=== PATIENT | female | born 1955 | race Caucasian/White ===

== ENCOUNTER 2019-12-15 02:39 | Inpatient (IN) | payer MEDICARE, OTHER ==
[2019-12-15] MEDS ORDERED: Potassium Chloride 20 MEQ in Premix Bag 1 BAG IVPB SCH (03:15)
[2019-12-15] MEDS ORDERED: Magnesium 2 GM/50 ML BAG (IN WATER) ONE (03:20)
[2019-12-15] MEDS ORDERED: metroNIDAZOLE 500 MG/100 ML BAG ONE ×2 (03:50→12:57)
[2019-12-15] MEDS ORDERED: Ondansetron PF 4 MG/2 ML Vial ONE ×2 (04:02→09:48)
[2019-12-15] MEDS ORDERED: Acetaminophen 500 MG TAB ONE (04:13)
[2019-12-15 05:25] VITALS: BMI 25.7
[2019-12-15] MEDS ORDERED: Ondansetron ODT 4 MG TAB SL PRN (05:26)
[2019-12-15] MEDS ORDERED: Ondansetron PF 4 MG/2 ML Vial IVP PRN (05:26)
[2019-12-15] MEDS ORDERED: Lactated Ringer's 1,000 ML IV SCH ×2 (05:30→12:30)
[2019-12-15 07:09] LABS: Hemoglobin 12.3 g/dL (12.0-16.0); Mean Corpuscular HGB CONC 33.3 g/dL (32.0-36.0); Mean Corpuscular Volume 93.2 fL (78.0-98.0); Mean Platelet Volume 7.6 fL (7.4-10.4); Platelet Count 122 thou/uL (130-400); RBC Distribution Width 12.1 % (11.5-14.5); Red Blood Cell (RBC) Count 3.96 mill/uL (4.20-5.40)
[2019-12-15 07:16] LABS: INR-International Normal Ratio 1.3; Prothrombin Time 16.3 SEC (12.0-14.7)
[2019-12-15 07:24] LABS: Anion Gap 16 mmol/L (10-20); BUN (Urea Nitrogen) 13 mg/dL (9.8-20.1); Calc. Creatinine Clearance 68 mL/min (70-130); Calcium 8.2 mg/dL (7.8-10.44); Carbon Dioxide 21 mmol/L (23-31); Chloride 103 mmol/L (98-107); Estimated GFR-MDRD 67; Glucose 144 mg/dL (80-115); Potassium 3.1 mmol/L (3.5-5.1); Sodium 137 mmol/L (136-145)
[2019-12-15 07:44] LABS: Band 36 % (5-11); Lymphocytes 6 % (21-51); MDiff Complete? YES; Metamyelocyte 1 % (0-0); Neutrophil 57 % (42-75); Platelet Morphology Comment Appears Decreased; Polychromasia SLIGHT = 2-3 cells (100X) (0-2/hpf); Reflex for Review?? NO; Vacuoles MODERATE
--- NOTE | 2019-12-15 08:07 | RAD ---
AP VIEW CHEST: Date: 12/15/2019 INDICATION: Preop evaluation. COMPARISON: None. FINDINGS: There is mild cardiomegaly. Pulmonary vasculature is within normal limits. There are vascular calcifi cations involving the aortic arch. There are patchy linear and air space opacities within the left lo wer lobe with a small left pleural effusion. Right lung is clear. No acute osseous abnormality is keily dent. IMPRESSION: Patchy air space opacity of the left lower lobe and a small left pleural effusion. Recommend correlat ion for any symptoms and signs of pneumonia. A 2 view chest radiograph may be helpful for improved ch aracterization. Radiographic follow-up to resolution is recommended. POS: [facility]
[2019-12-15] MEDS: Meropenem 2 GM, Admixture Fee 1 EACH in Sodium Chloride 0.9% 100 ML IVPB SCH ×2 (09:30→19:50)
[2019-12-15] MEDS ORDERED: Zolpidem Tartrate 5 MG TAB PO PRN (09:35)
[2019-12-15] MEDS ORDERED: Ondansetron ODT 4 MG TAB PO PRN (09:35)
[2019-12-15] MEDS ORDERED: HYDROcodone/Acetaminophen 7.5/325 mg Tablet PO PRN (09:35)
[2019-12-15] MEDS ORDERED: Acetaminophen 325 MG TAB PO PRN (09:35)
[2019-12-15] MEDS ORDERED: PHENYLEPHRINE-NS 100 MCG/ML 10 ML SYRINGE ONE (09:48)
[2019-12-15] MEDS ORDERED: diphenhydrAMINE 50 MG/ML VIAL ONE (09:48)
[2019-12-15] MEDS ORDERED: Dexamethasone 20 MG/5 ML VIAL ONE (09:48)
[2019-12-15] MEDS ORDERED: PROPOFOL 200 MG/20 ML VIAL ONE (09:48)
[2019-12-15] MEDS ORDERED: ePHEDrine/0.9% NaCl/PF SYRINGE 50 mg/10 ml ONE (09:48)
[2019-12-15 10:27] LABS: Bilirubin Negative (Negative); Blood, Urine 2+ (Negative); Clarity Clear (Clear); Glucose, Urine (Dipstick) Normal (Negative); Leukocyte 250 Leu/uL (Negative); Nitrite Negative (Negative); Protein, Urine (Dipstick) 10 mg/dL (Neg-Trace); Squamous Epithelial 0-3 HPF (0-3); Urobilinogen Normal mg/dL (Less than 2); WBC/HPF 21-50 HPF (0-3)
--- NOTE | 2019-12-15 10:28 | HP ---
PRIMARY CARE PROVIDER: Dr. Alton Alfaro. HISTORY OF PRESENT ILLNESS: The patient referred to the [facility] Service through [facility], with a history of back pain for 3 days, that was generalized, and yesterday, localized to the right side. She was seen in the emergency room, found to have an obstructing 5 mm stone in the right ureter. She was transferred here. She notes no fever at home, but was noted to be febrile in the emergency room. She has had chills, nausea, and vomiting. Her pain resolved last night, and she is doing well at the present time. PAST MEDICAL HISTORY: Hypertension. MEDICATIONS: 1. Aspirin 81 mg a day. 2. Coreg 12.5 mg twice a day. 3. Hydrochlorothiazide 25 mg a day. 4. Celebrex 200 mg twice a day. 5. Amlodipine 2.5 mg a day. 6. Losartan 100 mg a day. ALLERGIES: NO KNOWN DRUG ALLERGIES. PAST SURGICAL HISTORY: 1. Tonsillectomy in the distant past. 2. Cholecystectomy with an incidental appendectomy. 3. Tubal ligation. 4. Two inguinal hernias. FAMILY HISTORY: Mother of uterine cancer. Father is , multiple CVAs. She has a sister with cervical cancer. 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 No tobacco. She drinks wine 2 to 4 days a week. REVIEW OF SYSTEMS: GENERAL: She has had no headaches, dizziness, or fainting except for a mild headache with present illness. EYES: No double vision, blurred vision, or flashing lights. EARS, NOSE, AND THROAT: No ear pain or drainage. No nasal bleeding. No trouble swallowing. CARDIAC: No chest pain, orthopnea, or paroxysmal nocturnal dyspnea. RESPIRATIONS: No cough, wheezing, or asthma. GASTROINTESTINAL: No nausea, vomiting except for present illness, abdominal pain, diarrhea, or constipation. GENITOURINARY: No hematuria. No difficulty with urination. MUSCULOSKELETAL: No pain or swelling in her arms or legs. NEUROLOGICAL: No strokes, seizures, or focal weakness. PSYCHIATRIC: No anxiety or depression. SKIN: No bruising, bleeding, or rash. HEME/LYMPH: No tender or swollen lymph nodes in her inguinal, axillary, or cervical area. PHYSICAL EXAMINATION: GENERAL: The patient is alert, oriented, cooperative lady, in no distress at the present time. VITAL SIGNS: Initial temperature 100.4, now 98.4; initial pulse 102, followup 103; blood pressure 121/72; respirations 18; blood pressure 85/50 in the emergency room, she was noted to have a temperature as high as 100.8, last blood pressure in emergency room was 112/64. HEAD, EYES, EARS, NOSE, AND THROAT: Pupils are equal, round, and reactive to light. Extraocular movements are intact. Sclerae are white. Tympanic membranes are clear. Nose is clear. Oral mucous membranes are wet. Dental hygiene is good. NECK: Supple without jugular venous distention, adenopathy, or thyromegaly. CHEST: Clear to auscultation and percussion. HEART: Regular rate and rhythm. First and second heart sounds are clear. There are no murmurs, no gallops. ABDOMEN: Soft. Bowel sounds are normal. There is no hepatosplenomegaly. No mass. No rebound. No bruits. EXTREMITIES: No cyanosis, clubbing, or edema. PULSES: Carotid, radial, femoral, and popliteal pulses intact. SKIN: Warm and dry without bruises or rash. HEME/LYMPH: No tender or swollen lymph nodes in the axilla, inguinal, or cervical area. NEUROLOGICAL: Cranial nerves 2 through 12 intact. Moves all extremities. DIAGNOSTIC DATA: Chest x-ray reviewed by me. No cardiomegaly, CHF, or infiltrate. EKG personally reviewed, normal sinus rhythm, grossly normal EKG. No acute ST-T abnormality. LABORATORY DATA: Laboratory done at our site; white count 8.0 with 36 bands, hemoglobin 12.3, platelet count 122,000. Basic metabolic profile; sodium 137, potassium 3.1, CO2 is 21, BUN 13, creatinine 0.85, blood sugar 144. ADMITTING DIAGNOSES: 1. Renal colic with obstructing 5 mm stone on the right. 2. Sepsis syndrome with fever, bandemia. 3. Hypertension. 4. Hypokalemia. PLAN: IV fluids. Urine culture has been obtained. She has been started on meropenem. A cystoscopy with stent is planned by Dr. Robert later today. With the evidence of sepsis, bandemia, and fever, the patient will need at least 2 overnight stays. Job ID: [id number]
[2019-12-15 10:39] LABS: Bacteria/HPF 1+ HPF (None Seen)
[2019-12-15] MEDS ORDERED: Sodium Chloride 0.9% 1,000 ML IV SCH ×2 (10:45→12:15)
[2019-12-15] MEDS ORDERED: metroNIDAZOLE 500 MG in Premix Bag 1 BAG IVPB SCH (12:00)
[2019-12-15 12:41] LABS: Hemoglobin 11.3 g/dL (12.0-16.0); Mean Corpuscular HGB CONC 32.7 g/dL (32.0-36.0); Mean Corpuscular Hemoglobin 30.4 pg (27.0-31.0); Mean Corpuscular Volume 92.8 fL (78.0-98.0); Mean Platelet Volume 7.7 fL (7.4-10.4); Platelet Count 119 thou/uL (130-400); RBC Distribution Width 12.2 % (11.5-14.5); Red Blood Cell (RBC) Count 3.72 mill/uL (4.20-5.40); White Blood Cell (WBC) Count 17.9 thou/uL (4.8-10.8)
--- NOTE | 2019-12-15 12:46 | PDOC.EVN ---
Event Note - Event Note Event Note: sys mid 70 supine, mid 80s standing. no dizziness , AMS. OK to go to preop
[2019-12-15 13:13] LABS: Band 44 % (5-11); Lymphocytes 4 % (21-51); MDiff Complete? YES; Metamyelocyte 4 % (0-0); Monocytes 4 % (0-10); Neutrophil 43 % (42-75); Platelet Morphology Comment Appears Decreased; Polychromasia SLIGHT = 2-3 cells (100X) (0-2/hpf); Vacuoles SLIGHT
--- NOTE | 2019-12-15 13:39 | CON ---
DATE OF CONSULTATION: 12/15/2019 REASON FOR CONSULTATION: Right ureteral calculi. HISTORY OF PRESENT ILLNESS: Ms. Santana is a pleasant 64-year-old female with history of hypertension and hyperlipidemia with no prior history of kidney stone , presented to the emergency room with few days of right flank pain with worsening. She denies history of fever, questionable chills. CT in the emergency room demonstrated right distal ureteral calculi, 5 mm, just proximal to the UVJ and questionable diverticulitis. She is hemodynamically stable, however, advised regarding observation/admit as she presents with leukocytosis with nausea. The patient was transferred from [facility] ER, currently resting comfortably. She denies prior history of UTI, pyelonephritis, prior history of kidney stones, nor incontinence. PAST MEDICAL HISTORY: Includes arthritis, hyperlipidemia, and hypertension. PAST SURGICAL HISTORY: Appendectomy, cholecystectomy, hernia repair, and tubal ligation. FAMILY HISTORY: Positive for hypertension, arthritis, CVA, diabetes, cervical cancer, heart failure, and uterine cancer. ALLERGIES: NO KNOWN DRUG ALLERGIES. SOCIAL HISTORY: Negative. 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 REVIEW OF SYSTEMS: Ten-point review of systems, as above. Otherwise, noncontributory. PHYSICAL EXAMINATION: VITAL SIGNS: Her blood pressure is stable. She had a T-max of 101.8. Currently, she is 98. No significant tachycardia or hypotension. GENERAL: The patient is resting comfortably. HEENT: Unremarkable. HEART: Regular rate. LUNGS: Clear. ABDOMEN: Soft, nontender, and nondistended. : No gross CVA tenderness on physical exam currently. NEUROLOGIC: No gross focal deficits. PSYCHIATRIC: Appears to be appropriate and intact. EXTREMITIES: No cyanosis, clubbing, or edema of the lower extremities. Pertinent PERTINENT LABORATORY DATA: Pertinent labs, which I reviewed in Epic records at [facility] and [facility] Room: Creatinine 0.6. White count 15, hemoglobin is 13, platelet 251. UA from [facility] demonstrates 10 to 19 rbc's, 3 to 9 wbc's, rare epithelials, few bacteria, negative leukocytes, negative nitrites. CT of the abdomen and pelvis with contrast at [facility]: 5 mm right distal ureteral calculi just proximal to the UVJ with moderate right hydroureteronephrosis with delayed nephrogram; bilateral renal cysts, too small to characterize; colonic sigmoid mural thickening with inflammation, cannot rule out diverticulitis. IMPRESSION AND PLAN: 1. Ms. Santana is a pleasant 64-year-old female with history of hypertension and hyperlipidemia, who presents with right lower quadrant abdominal pain, fever, and leukocytosis with CT demonstrating 5 mm distal ureteral calculi with hydronephrosis. The patient is currently n.p.o. She is provided Levaquin and Flagyl by the ER. Meropenem empirically has been started. She is n.p.o. Recommend cysto and right stent. The patient and family were consulted that ureteral stent is advised given her clinical presentation with fever and leukocytosis and elective treatment of her ureteral calculi when culture negative discussed. Risks, complications, and indications for the surgery reviewed, and she desires to proceed. 2. Questionable diverticulitis. Recommend Medical/GI workup. Job ID: [id number] [facility] HOSPITALStephanie
[2019-12-15] MEDS ORDERED: Iothalamate Meglumine 60% 50 ML VIAL FS ONE (15:34)
[2019-12-15] MEDS ORDERED: Midazolam HCl 2 mg/2 ml Vial ONE (15:38)
[2019-12-15] MEDS ORDERED: Fentanyl 100 MCG/2 ML VIAL ONE ×2 (15:38→18:01)
--- NOTE | 2019-12-15 16:21 | RAD ---
EXAM: Retrograde IVP HISTORY: Stent placement for hydronephrosis COMPARISON: None FINDINGS/IMPRESSION: Limited intraoperative fluoroscopic views of the retrograde IVP were submitted f or interpretation. There is moderate right hydronephrosis. Additionally, a right-sided double-J ureteral stent is placed and appears in good position. No obvious filling defects are seen.
[2019-12-15] MEDS ORDERED: Mag-Al 1200 mg/1200 mg/30 ML UDCUP PO PRN (16:26)
[2019-12-15] MEDS ORDERED: Ondansetron HCl/PF 4 MG/2 ML Vial IVP PRN (16:33)
[2019-12-15] MEDS ORDERED: Acetaminophen 325 MG TAB ONE (16:57)
[2019-12-15 18:05] LABS: Anion Gap 16 mmol/L (10-20); BUN (Urea Nitrogen) 17 mg/dL (9.8-20.1); Calc. Creatinine Clearance 44 mL/min (70-130); Calcium 7.9 mg/dL (7.8-10.44); Carbon Dioxide 20 mmol/L (23-31); Chloride 107 mmol/L (98-107); Estimated GFR-MDRD 41; Glucose 140 mg/dL (80-115); Potassium 3.1 mmol/L (3.5-5.1); Sodium 140 mmol/L (136-145)
--- NOTE | 2019-12-15 18:29 | OP ---
DATE OF PROCEDURE: 12/15/2019 PREOPERATIVE DIAGNOSES: 1. 5 mm right distal ureteral calculi just proximal to ureterovesical junction. 2. Leukocytosis. 3. Possible concomitant diverticulitis. POSTOPERATIVE DIAGNOSES: 1. 5 mm right distal ureteral calculi just proximal to ureterovesical junction. 2. Leukocytosis. 3. Possible concomitant diverticulitis. PROCEDURES PERFORMED: Cysto, right 6 x 24 double-J ureteral stent. ANESTHESIA: LMA. COMPLICATIONS: None apparent. DISPOSITION: Recovery room in stable condition. INDICATIONS FOR PROCEDURE AND HISTORY: Ms. Santana presented to the emergency room due to a history of right flank pain, found to have 5 mm distal ureteral calculi and possible diverticulitis. She presents for cysto and stent placement. She has been provided broad-spectrum antibiotic therapy with Levaquin, meropenem, and Flagyl. Pain is controlled; however, she recently developed hypotension. She otherwise is comfortable, heart rate normal. Presents for cysto and stent. The patient and her were fully informed that she will require at a later date staged ureteroscopy and laser lithotripsy. Risks and complications of the procedure were reviewed including bleeding, pain, infection, progressive sepsis, morbidity, mortality, and injury to adjacent organs such as ureter, bladder, or kidney were reviewed. DESCRIPTION OF PROCEDURE: After an informed consent was signed, the patient was taken to the operating room and placed in the dorsal lithotomy position with the genital area prepped and draped in the usual surgical sterile fashion. A 21- Burundian cystoscope was utilized for cystoscopy. Fluoroscopy did demonstrate that she has a persistent contrast in the right ureter and kidney. A 0.035 Sensor wire was utilized to intubate the right UO. There was some resistance passing a 21- Burundian cystoscope; however, I was able to pass the scope without trauma. We passed a 0.035 Sensor wire into the right upper pole. A 6 x 24 double-J ureteral stent was passed. There was resistance passing the stent at the level of the stone; however, we did place the stent uneventfully in good position. No significant pyonephrosis from the right kidney was appreciated. A 16-Burundian Keller catheter was placed. She would be monitored in intensive care unit with broad-spectrum antibiotics and fluid resuscitation and pressors if needed. Job ID: [id number] [facility]
[2019-12-15] MEDS: Sodium Chloride 0.9% 1,000 ML IV SCH (20:49)
[2019-12-15] MEDS: Docusate 100 MG CAP PO SCH (20:50)
[2019-12-15] MEDS ORDERED: Carvedilol 6.25 MG TAB PO SCH (21:00)
[2019-12-16] MEDS: Meropenem 2 GM, Admixture Fee 1 EACH in Sodium Chloride 0.9% 100 ML IVPB SCH ×3 (00:44→15:47)
[2019-12-16] MEDS: Sodium Chloride 0.9% 1,000 ML IV SCH ×4 (00:44→14:53)
[2019-12-16 04:16] LABS: Anion Gap 12 mmol/L (10-20); BUN (Urea Nitrogen) 18 mg/dL (9.8-20.1); Calc. Creatinine Clearance 63 mL/min (70-130); Calcium 7.7 mg/dL (7.8-10.44); Carbon Dioxide 20 mmol/L (23-31); Chloride 110 mmol/L (98-107); Estimated GFR-MDRD 62; Glucose 135 mg/dL (80-115); Potassium 3.4 mmol/L (3.5-5.1); Sodium 139 mmol/L (136-145)
[2019-12-16 04:17] LABS: Band 10 % (5-11); Hemoglobin 11.3 g/dL (12.0-16.0); Hypochromia SLIGHT = 6-15 cells (100X) (0-5/hpf); Lymphocytes 8 % (21-51); MDiff Complete? YES; Mean Corpuscular HGB CONC 32.6 g/dL (32.0-36.0); Mean Corpuscular Hemoglobin 30.6 pg (27.0-31.0); Mean Corpuscular Volume 93.8 fL (78.0-98.0); Mean Platelet Volume 8.4 fL (7.4-10.4); Monocytes 14 % (0-10); Neutrophil 68 % (42-75); Platelet Count 125 thou/uL (130-400); Platelet Morphology Comment Appears Adequate; RBC Distribution Width 12.3 % (11.5-14.5); Red Blood Cell (RBC) Count 3.71 mill/uL (4.20-5.40)
--- NOTE | 2019-12-16 07:11 | PDOC.HOSPP ---
- Subjective Encounter Date: 12/16/19 Encounter Time: 07:09 Subjective: alert, no pain or fever - Objective Vital Signs & Weight: Vital Signs (12 hours) Temp Pulse Ox 12/16/19 05:00 98.9 F 12/16/19 01:00 98.3 F 12/15/19 21:00 98.9 F 12/15/19 20:00 93 L Weight Weight 145 lb 9.6 oz Most Recent Monitor Data Heart Rate from ECG 84 NIBP 106/71 NIBP BP-Mean 82 Respiration from ECG 21 SpO2 97 I&O: 12/15/19 12/16/19 12/17/19 06:59 06:59 06:59 Intake Total 0 4405 Output Total 1515 Balance 0 2890 Result Diagrams: 12/16/19 03:26 12/16/19 03:26 Hospitalist ROS - Medication Medications: Active Medications Generic Name Dose Route Start Last Admin Trade Name Freq PRN Reason Stop Dose Admin Docusate Sodium 100 mg 12/15/19 21:00 12/15/19 20:50 Colace PO 100 mg BID VIC Administration Meropenem 2 gm/ Miscellaneous 100 mls @ 200 mls/hr 12/15/19 08:00 12/16/19 00 :44 Medication 1 each/ Sodium IVPB 100 mls Chloride 0800,1600,2359 VIC Administration - Exam General Appearance: awake alert Neck: no JVD Heart: RRR, no murmur Respiratory: CTAB Gastrointestinal: soft, normal bowel sounds Extremities: no edema Hosp A/P (1) Renal colic on right side Code(s): N23 - UNSPECIFIED RENAL COLIC Status: Acute (2) Nephrolithiasis Status: Acute (3) Sepsis Code(s): A41.9 - SEPSIS, UNSPECIFIED ORGANISM Status: Acute Qualifiers: Sepsis acute organ dysfunction status: without acute organ dysfunction (4) Hypotension Status: Resolved Qualifiers: Hypotension type: other hypotension type Qualified Code(s): I95.89 - Other hypotension (5) HTN (hypertension) Code(s): I10 - ESSENTIAL (PRIMARY) HYPERTENSION Status: Chronic Qualifiers: Hypertension type: essential hypertension Qualified Code(s): I10 - Essential (primary) hypertension - Plan urine C&S pending post ureteral stent cont meropenem hold antihypertensives as BP normal curre dicussed with move to medical unitently
[2019-12-16] MEDS ORDERED: Potassium Chloride 20 MEQ TAB PO SCH (07:15)
--- NOTE | 2019-12-16 08:09 | PRG ---
DATE OF SERVICE: 12/16/2019 SUBJECTIVE: The patient is feeling and looking much better. Denies flank pain, chills, fever. OBJECTIVE: VITAL SIGNS: T-max of 100.4, T-current is 98.9, pulse 84, and blood pressure 106/71. Not on pressors. I's and O's 4405 in, 1517 out. She is positive 2.8 L. ABDOMEN: Soft, nontender, nondistended. Keller catheter demonstrating concentrated yellow urine with some sediment. PERTINENT LABORATORY DATA: White count 30,000 today, although there is significant leukocytosis, there is improvement of her bandemia from 44 to 10. Creatinine is 0.9. IMPRESSION AND PLAN: 1. Ms. Lucas is a 64-year-old female with right distal ureteral stone postop day #1 cysto, right stent. 2. Sepsis. 3. Possible diverticulitis. 4. Continue meropenem. patient's blood pressure and vital signs are stable and clinically much improved. will transition to a regular floor per Hospitalist continue indwelling Keller catheter for now. The patient will need to be remain in-house until culture has been finalized. Await cultures. Continue meropenem for now. Job ID: [id number] [facility]
[2019-12-16] MEDS: Aspirin 81 mg Enteric Coated Tablet PO SCH (08:42)
[2019-12-16] MEDS: Docusate 100 MG CAP PO SCH ×2 (08:42→20:55)
[2019-12-16] MEDS ORDERED: Amlodipine 5 MG TAB PO SCH (09:00)
[2019-12-16] MEDS ORDERED: Losartan 25 MG TAB PO SCH (09:00)
[2019-12-16 17:18] LABS: Anion Gap 14 mmol/L (10-20); BUN (Urea Nitrogen) 20 mg/dL (9.8-20.1); Calc. Creatinine Clearance 70 mL/min (70-130); Calcium 7.8 mg/dL (7.8-10.44); Carbon Dioxide 21 mmol/L (23-31); Chloride 111 mmol/L (98-107); Estimated GFR-MDRD 69; Glucose 92 mg/dL (80-115); Potassium 3.8 mmol/L (3.5-5.1); Sodium 142 mmol/L (136-145)
[2019-12-17] MEDS: Meropenem 2 GM, Admixture Fee 1 EACH in Sodium Chloride 0.9% 100 ML IVPB SCH ×4 (00:20→23:50)
[2019-12-17] MEDS: Sodium Chloride 0.9% 1,000 ML IV SCH ×2 (04:37→23:49)
[2019-12-17 06:18] LABS: Band 13 % (5-11); Hemoglobin 11.2 g/dL (12.0-16.0); Lymphocytes 5 % (21-51); MDiff Complete? YES; Mean Corpuscular HGB CONC 31.9 g/dL (32.0-36.0); Mean Corpuscular Hemoglobin 30.4 pg (27.0-31.0); Mean Corpuscular Volume 95.2 fL (78.0-98.0); Mean Platelet Volume 8.9 fL (7.4-10.4); Monocytes 3 % (0-10); Neutrophil 79 % (42-75); Platelet Count 130 thou/uL (130-400); RBC Distribution Width 12.5 % (11.5-14.5); Red Blood Cell (RBC) Count 3.69 mill/uL (4.20-5.40)
[2019-12-17] MEDS ORDERED: Phenazopyridine HCl 97.5 MG TABLET PO PRN (07:38)
--- NOTE | 2019-12-17 08:04 | PRG ---
DATE OF SERVICE: 12/17/2019 SUBJECTIVE: The patient is feeling well. She denies chills, fever, or diarrhea. No significant abdominal discomfort, clinically appears stable. OBJECTIVE: VITAL SIGNS: Stable. She has been afebrile more than 24 hours; temperature 98, pulse 77, respiratory rate 16, oxygen saturation 92, and blood pressure 142/86. I's and O's; 4405 in, 1550 out. ABDOMEN: Soft, nontender, and nondistended. No CVA tenderness appreciated. GENITOURINARY: Urine output is abimael, pink tinged. PERTINENT LABORATORY DATA: urine culture is negative. White count decreased from 30,000 to 29,000, hemoglobin is stable, platelet 130, bandemia from 44 to 13. Creatinine stable at 0.8. Potassium within normal limits. IMPRESSION AND PLAN: Ms. Santana is a 64-year-old female, presented with leukocytosis, bandemia, right 5-mm distal ureteral calculi, postop day #2, status post cysto, right stent. Clinically, she appears well, however, as she still has persistent leukocytosis, recommend patient to be observed minimum for another 24 hours. If repeat CBC tomorrow has improved with ongoing improvement of her bandemia, from urologic perspective, she may be discharged with broad-spectrum antibiotics such as Levaquin 750 mg one p.o. daily for 14 days, she has close followup with me, appointment is in chart. My business card is provided. If evidence of recurrent fever or bandemia of concern, consider Infectious Disease consult. As her CT previously at an outside facility was read as possible diverticulitis. She does not appear to have symptoms of diverticulitis and has been on meropenem. Plan elective ureteroscopy and laser lithotripsy at a later date. Dr. Grullon, covering me this weekend. Job ID: [id number] [facility]
[2019-12-17] MEDS ORDERED: hydrALAZINE 20 MG/ML VIAL SLOW IVP PRN (09:02)
[2019-12-17] MEDS ORDERED: HYDROcodone/Acetaminophen 5/325 mg Tablet PO PRN (09:02)
[2019-12-17] MEDS ORDERED: Bisacodyl 10 MG SUPP PR PRN (09:02)
[2019-12-17] MEDS ORDERED: Cepastat Lozenges 1 LOZ PO PRN (09:02)
[2019-12-17] MEDS ORDERED: Loperamide HCl 2 MG CAP PO PRN (09:02)
[2019-12-17] MEDS ORDERED: Loratadine 10 MG TAB PO PRN (09:02)
[2019-12-17] MEDS ORDERED: Artificial Tears 18 DROP/0.9 ML EA EYE PRN (09:02)
[2019-12-17] MEDS ORDERED: Sodium Chloride 0.65% Nasal 44 ML BOT EA NARE PRN (09:02)
[2019-12-17] MEDS ORDERED: Ondansetron PF 4 MG/2 ML Vial IVP PRN (09:02)
[2019-12-17] MEDS ORDERED: Diabetic Tussin 200 MG/10 ML UDCUP PO PRN (09:02)
[2019-12-17] MEDS ORDERED: Artificial Tear Sol 15 ML BOT EA EYE PRN ×2 (09:12→09:15)
[2019-12-17] MEDS: Aspirin 81 mg Enteric Coated Tablet PO SCH (09:12)
[2019-12-17] MEDS: Docusate 100 MG CAP PO SCH ×2 (09:12→20:53)
[2019-12-17] MEDS: Oxybutynin ER 5 MG TAB PO SCH (10:23)
--- NOTE | 2019-12-17 13:07 | PDOC.HOSPP ---
- Subjective Encounter Date: 12/17/19 Encounter Time: 09:15 Subjective: Patient seen and examined. No new complaints. No overnight events, pt does not have any respiratory symptoms, no diarrhea - Objective Vital Signs & Weight: Vital Signs (12 hours) Temp Pulse Resp BP BP Pulse Ox 12/17/19 11:46 98.6 F 73 16 144/86 H 93 L 12/17/19 07:20 98.9 F 80 18 158/100 H 91 L 12/17/19 05:00 98.3 F 77 16 142/86 H 92 L Weight Weight 145 lb 9.6 oz Most Recent Monitor Data Heart Rate from ECG 74 NIBP 118/79 NIBP BP-Mean 92 Respiration from ECG 15 SpO2 93 I&O: 12/16/19 12/17/19 12/18/19 06:59 06:59 06:59 Intake Total 4405 950 820 Output Total 1515 70 300 Balance 2890 880 520 Result Diagrams: 12/17/19 05:15 12/16/19 16:59 Hospitalist ROS - Review of Systems Constitutional: denies: fever, chills, sweats, weakness, malaise, other Eyes: denies: pain, vision change, conjunctivae inflammation, eyelid inflammation, redness, other ENT: denies: ear pain, ear discharge, nose pain, nose discharge, nose congestion , mouth pain, mouth swelling, throat pain, throat swelling, other Respiratory: denies: cough, dry, shortness of breath, hemoptysis, SOB with excertion, pleuritic pain, sputum, wheezing, other Cardiovascular: denies: chest pain, palpitations, orthopnea, paroxysmal noc. dyspnea, edema, light headedness, other Gastrointestinal: denies: nausea, vomiting, abdominal pain, diarrhea, constipation, melena, hematochezia, other Genitourinary: denies: dysuria, frequency, incontinence, hematuria, retention, other Musculoskeletal: denies: neck pain, shoulder pain, arm pain, back pain, hand pain, leg pain, foot pain, other Skin: denies: rash, lesions, verito, bruising, other - Medication Medications: Active Medications Generic Name Dose Route Start Last Admin Trade Name Freq PRN Reason Stop Dose Admin Acetaminophen 650 mg 12/15/19 09:35 12/17/19 04:37 Tylenol PO 650 mg Q4H PRN Administration Headache/Fever/Mild Pain (1-3) Aspirin 81 mg 12/16/19 09:00 12/17/19 09:12 Ecotrin PO 81 mg DAILY VIC Administration Docusate Sodium 100 mg 12/15/19 21:00 12/17/19 09:12 Colace PO 100 mg BID VIC Administration Meropenem 2 gm/ Miscellaneous 100 mls @ 200 mls/hr 12/15/19 08:00 12/17/19 10 :23 Medication 1 each/ Sodium IVPB 100 mls Chloride 0800,1600,2359 VIC Administration Sodium Chloride 1,000 mls @ 100 mls/hr 12/16/19 07:15 12/17/19 04:37 Normal Saline 0.9% IV 1,000 mls .Q10H VIC Administration Oxybutynin Chloride 10 mg 12/17/19 09:00 12/17/19 10:23 Ditropan Xl PO 10 mg DAILY VIC Administration - Exam General Appearance: NAD, awake alert Eye: PERRL, anicteric sclera ENT: normocephalic atraumatic, no oropharyngeal lesions Neck: supple, symmetric, no JVD Heart: RRR, no murmur, no gallops, no rubs Respiratory: CTAB, no wheezes, no rales, no ronchi Gastrointestinal: soft, non-tender, non-distended, normal bowel sounds Extremities: no cyanosis, no clubbing, no edema Skin: normal turgor, no lesions Neurological: no focal deficits Musculoskeletal: normal tone, normal strength Psychiatric: normal affect, normal behavior, A&O x 3 Hosp A/P (1) Sepsis Code(s): A41.9 - SEPSIS, UNSPECIFIED ORGANISM Status: Acute Qualifiers: Sepsis type: sepsis due to unspecified organism Sepsis acute organ dysfunction status: without acute organ dysfunction Qualified Code(s): A41.9 - Sepsis, unspecified organism (2) Renal colic on right side Code(s): N23 - UNSPECIFIED RENAL COLIC Status: Acute (3) Nephrolithiasis Status: Acute (4) HTN (hypertension) Code(s): I10 - ESSENTIAL (PRIMARY) HYPERTENSION Status: Chronic Qualifiers: Hypertension type: essential hypertension Qualified Code(s): I10 - Essential (primary) hypertension (5) Hypotension Status: Resolved Qualifiers: Hypotension type: other hypotension type Qualified Code(s): I95.89 - Other hypotension (6) Leucocytosis Code(s): D72.829 - ELEVATED WHITE BLOOD CELL COUNT, UNSPECIFIED Status: Acute (7) Hypokalemia Code(s): E87.6 - HYPOKALEMIA Status: Resolved - Plan old records reviewed/req, plan discussed w/ family, continue antibiotics 12/17/19 tomorrow will repeat labs if wbc continue to improve then will consider discharge on oral antibiotics will get chest xray for her abnormal chest xray continue meropenam
[2019-12-18 06:08] LABS: ALT (SGPT) 11 U/L (8-55); AST (SGOT) 9 U/L (5-34); Albumin 2.8 g/dL (3.4-4.8); Alkaline Phosphatase 94 U/L (40-110); Anion Gap 10 mmol/L (10-20); BUN (Urea Nitrogen) 10 mg/dL (9.8-20.1); Bilirubin, Total 0.4 mg/dL (0.2-1.2); Calc. Creatinine Clearance 89 mL/min (70-130); Calcium 8.4 mg/dL (7.8-10.44); Carbon Dioxide 30 mmol/L (23-31); Chloride 108 mmol/L (98-107); Estimated GFR-MDRD Greater than 90; Globulin 2.3 g/dL (2.4-3.5); Glucose 76 mg/dL (80-115); Potassium 3.8 mmol/L (3.5-5.1); Protein, Total 5.1 g/dL (6.0-8.3); Sodium 144 mmol/L (136-145)
[2019-12-18 07:06] LABS: Hemoglobin 11.7 g/dL (12.0-16.0); MDiff Complete? YES; Mean Corpuscular HGB CONC 32.3 g/dL (32.0-36.0); Mean Corpuscular Hemoglobin 30.4 pg (27.0-31.0); Mean Corpuscular Volume 94.3 fL (78.0-98.0); Mean Platelet Volume 8.6 fL (7.4-10.4); Platelet Count 143 thou/uL (130-400); RBC Distribution Width 12.4 % (11.5-14.5); Red Blood Cell (RBC) Count 3.84 mill/uL (4.20-5.40); White Blood Cell (WBC) Count 23.6 thou/uL (4.8-10.8)
[2019-12-18 07:07] LABS: Band 18 % (5-11); Eosinophils 1 % (0-10); Lymphocytes 4 % (21-51); Monocytes 3 % (0-10); Neutrophil 74 % (42-75)
[2019-12-18] MEDS: Sodium Chloride 0.9% 1,000 ML IV SCH (07:41)
[2019-12-18 08:13] VITALS: BP 147/91; TEMP 98.7
--- NOTE | 2019-12-18 08:49 | RAD ---
Exam: Chest 2 views: HISTORY: Follow-up abnormal portable chest x-ray FINDINGS: Evidence for bilateral pleural effusions, small. Heart size is within normal limits. Minimal linear p arenchymal changes in the bases probably subsegmental atelectasis. No confluent lobar pneumonia. IMPRESSION: Small bilateral pleural effusions. Minimal linear parenchymal changes in the bases probably represent ing subsegmental atelectasis.
--- NOTE | 2019-12-18 10:56 | PDOC.HOSPP ---
- Subjective Encounter Date: 12/18/19 Encounter Time: 10:10 Subjective: Patient seen and examined. No new complaints. No overnight events - Objective Vital Signs & Weight: Vital Signs (12 hours) Temp Pulse Resp BP Pulse Ox 12/18/19 08:06 98.7 F 80 18 147/91 H 94 L Weight Weight 145 lb 9.6 oz Most Recent Monitor Data Heart Rate from ECG 74 NIBP 118/79 NIBP BP-Mean 92 Respiration from ECG 15 SpO2 93 I&O: 12/17/19 12/18/19 12/19/19 06:59 06:59 06:59 Intake Total 950 2567 Output Total 70 2950 Balance 880 -383 Result Diagrams: 12/18/19 05:02 12/18/19 05:02 Hospitalist ROS - Review of Systems ENT: denies: ear pain, ear discharge, nose pain, nose discharge, nose congestion , mouth pain, mouth swelling, throat pain, throat swelling, other Respiratory: denies: cough, dry, shortness of breath, hemoptysis, SOB with excertion, pleuritic pain, sputum, wheezing, other Cardiovascular: denies: chest pain, palpitations, orthopnea, paroxysmal noc. dyspnea, edema, light headedness, other Gastrointestinal: denies: nausea, vomiting, abdominal pain, diarrhea, constipation, melena, hematochezia, other Genitourinary: denies: dysuria, frequency, incontinence, hematuria, retention, other Musculoskeletal: denies: neck pain, shoulder pain, arm pain, back pain, hand pain, leg pain, foot pain, other - Medication Medications: Active Medications Generic Name Dose Route Start Last Admin Trade Name Estela PRN Reason Stop Dose Admin Acetaminophen 650 mg 12/15/19 09:35 12/17/19 04:37 Tylenol PO 650 mg Q4H PRN Administration Headache/Fever/Mild Pain (1-3) Aspirin 81 mg 12/16/19 09:00 12/17/19 09:12 Ecotrin PO 81 mg DAILY VIC Administration Docusate Sodium 100 mg 12/15/19 21:00 12/17/19 20:53 Colace PO Not Given BID VIC Meropenem 2 gm/ Miscellaneous 100 mls @ 200 mls/hr 12/15/19 08:00 12/17/19 23 :50 Medication 1 each/ Sodium IVPB 100 mls Chloride 0800,1600,2359 VIC Administration Sodium Chloride 1,000 mls @ 100 mls/hr 12/16/19 07:15 12/18/19 07:41 Normal Saline 0.9% IV Not Given .Q10H VIC Oxybutynin Chloride 10 mg 12/17/19 09:00 12/17/19 10:23 Ditropan Xl PO 10 mg DAILY VIC Administration Zolpidem Tartrate 5 mg 12/15/19 09:35 12/17/19 21:47 Ambien PO 5 mg HSPRN PRN Administration Insomnia - Exam General Appearance: NAD, awake alert Eye: PERRL, anicteric sclera ENT: normocephalic atraumatic, no oropharyngeal lesions Neck: supple, symmetric, no JVD Heart: RRR, no murmur, no gallops Respiratory: CTAB, no wheezes, no rales, no ronchi Gastrointestinal: soft, non-tender, non-distended, normal bowel sounds Extremities: no cyanosis, no clubbing, no edema Skin: normal turgor, no lesions Neurological: no focal deficits Musculoskeletal: normal tone, normal strength Psychiatric: normal affect, normal behavior Hosp A/P (1) Sepsis Code(s): A41.9 - SEPSIS, UNSPECIFIED ORGANISM Status: Acute Qualifiers: Sepsis type: sepsis due to unspecified organism Sepsis acute organ dysfunction status: without acute organ dysfunction Qualified Code(s): A41.9 - Sepsis, unspecified organism (2) Renal colic on right side Code(s): N23 - UNSPECIFIED RENAL COLIC Status: Acute (3) Nephrolithiasis Status: Acute (4) HTN (hypertension) Code(s): I10 - ESSENTIAL (PRIMARY) HYPERTENSION Status: Chronic Qualifiers: Hypertension type: essential hypertension Qualified Code(s): I10 - Essential (primary) hypertension (5) Hypotension Status: Resolved Qualifiers: Hypotension type: other hypotension type Qualified Code(s): I95.89 - Other hypotension (6) Leucocytosis Code(s): D72.829 - ELEVATED WHITE BLOOD CELL COUNT, UNSPECIFIED Status: Acute (7) Hypokalemia Code(s): E87.6 - HYPOKALEMIA Status: Resolved - Plan old records reviewed/req, plan discussed w/ family, continue antibiotics 12/17/19 tomorrow will repeat labs if wbc continue to improve then will consider discharge on oral antibiotics will get chest xray for her abnormal chest xray continue meropenam 12/18/19 will consult ID team for her high wbc count, will repeat cbc tomorrow medication reviewed and continue to provide symptomatic treatment and supportive care
[2019-12-18] MEDS: Oxybutynin ER 5 MG TAB PO SCH (10:58)
[2019-12-18] MEDS: Docusate 100 MG CAP PO SCH (10:58)
[2019-12-18] MEDS: Aspirin 81 mg Enteric Coated Tablet PO SCH (10:58)
[2019-12-18] MEDS: Meropenem 2 GM, Admixture Fee 1 EACH in Sodium Chloride 0.9% 100 ML IVPB SCH (11:03)
--- NOTE | 2019-12-18 11:13 | PRG ---
DATE OF SERVICE: 12/18/2019 This is a 64-year-old white female, whom I am seeing in her room in [address] at [facility]. She feels fine, having no discomfort. No flank pain. No abdominal pain. No dysuria. No hematuria. No problems from her stent at all. Her vital signs are stable. She had at most looks like 99.2 temperature, blood pressure is being good. She has been urinating without difficulty. She is still on meropenem. On reviewing her Microbiology, only one that we have here is a urine culture, that has no growth at 48 hours. I think that one was already seen. Her white count has come down some, it was 29 yesterday, 23 today, so it is going in the right direction, still has 18 bands. Her creatinine is 0.6. From my standpoint, it will look like she will be ready to go home. However, she is going to have an Infectious Disease consult, it has already been called by the hospitalist group, so we will see what Dr. Noel says as he sees her. She has follow up with Dr. Robert and I think she could go home if Infectious Disease was okay with that. If not, I will check on her tomorrow. Job ID: [id number]
--- NOTE | 2019-12-18 15:58 | DIS ---
DATE OF ADMISSION: 12/15/2019 DATE OF DISCHARGE: 12/18/2019 PRIMARY CARE PHYSICIAN: [facility] Call admission. DISCHARGE DISPOSITION: Home. PRIMARY DISCHARGE DIAGNOSES: 1. Right ureteric colic with nephrolithiasis status post cystoscopy and stent placement. 2. Sepsis due to urinary tract infection. SECONDARY DISCHARGE DIAGNOSIS: Hypertension. PRIMARY PROCEDURE/OPERATION: Cystoscopy and right ureteral stent placement by Dr. Lefty Robert. Radiological investigation: Retrograde pyelogram, chest x-ray. SIGNIFICANT LABORATORY DATA: WBC 23.6, hemoglobin 11.7, platelet 143. INR 1.3. Sodium 144, creatinine 0.65. Urinalysis unremarkable. Urine culture negative. DISCHARGE MEDICATION: 1. Levofloxacin 750 mg p.o. daily. 2. Ditropan XL 10 mg daily. 3. Colace 100 mg b.i.d. 4. Losartan 100 mg daily. 5. Hydrochlorothiazide 25 mg daily. 6. Coreg 12.5 mg b.i.d. 7. Aspirin 81 mg daily. 8. Amlodipine 2.5 mg p.o. daily. CONTRAINDICATION: None. CODE STATUS: Full code. 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 Francisca Robert was following while in hospital. ALLERGIES: NO KNOWN DRUG ALLERGIES. DISCHARGE PLAN: Posthospital the patient has appointment with Dr. Francisca Robert on December 21, 2019 at 10:15 am. HOSPITAL COURSE: A 64-year-old female who was admitted by Dr. Prescott. Please see his H and P for further details. On admission, the patient was having right-sided flank pain and she had a CT abdomen and pelvis at [facility], which showed 5 mm stone in distal right ureter with obstructive changes. The patient was admitted to the hospital and she was evaluated by Urology. Dr. Francisca Robert did cystoscopy and stent placement in right ureter. She was having leukocytosis, but her culture remained negative and she remained afebrile. Her chest x-ray was showing atelectasis and small tiny pleural effusion. We tried to consult Infectious Disease team, but at this point in the hospital, Infectious Disease team is not available and the patient wants to go home. She has close appointment with Urology on December 21, 2019. At that time patient will have repeat lab testing done. While in hospital she was treated with meropenem and on discharge we changed to levofloxacin p.o. On admission, she was hypotensive and that is why we have to hold all her blood pressure medication, but upon discharge, her blood pressure was improving and we resumed all medication which she was taking prior to admission. The patient was seen and examined at bedside today. Please see my progress note from today for further detail. Job ID: [id number]
--- NOTE | 2019-12-19 23:59 | EKG ---
Test Reason : Blood Pressure : / mmHG Vent. Rate : 091 BPM Atrial Rate : 091 BPM P-R Int : 178 ms QRS Dur : 082 ms QT Int : 386 ms P-R-T Axes : 040 -16 028 degrees QTc Int : 474 ms Normal sinus rhythm Low voltage QRS Inferior infarct , age undetermined Cannot rule out Anterior infarct , age undetermined Abnormal ECG Confirmed by Isa CHRISTINE ([id number]) on 12/19/2019 11:59:15 PM Referred By: CHINO Confirmed By:Isa CHRISTINE
== END 2019-12-18 13:53 | disposition home or self-care (01) | DRG 854 ==
LOC: ERS 02:39 → 2SW 04:53 → OBSVTOIN 09:35 → CCU 19:45 → T4-B 12-16 10:04
PROVIDERS: ADMIT Internal Medicine; ATTEND Internal Medicine
PROC: 0T768DZ Dilation of Right Ureter with Intraluminal Device, Via Natural or Artificial Opening Endoscopic (ICD-10-PCS; principal; 2019-12-15)
PROC: BT1D1ZZ Fluoroscopy of Right Kidney, Ureter and Bladder using Low Osmolar Contrast (ICD-10-PCS; 2019-12-15)
DX: A41.9 Sepsis, unspecified organism (principal); N13.6 Pyonephrosis; J98.11 Atelectasis; I10 Essential (primary) hypertension; E78.5 Hyperlipidemia, unspecified; E87.6 Hypokalemia; Z79.899 Other long term (current) drug therapy; Z79.82 Long term (current) use of aspirin; Z90.49 Acquired absence of other specified parts of digestive tract
CPT/HCPCS: 36415; 71045; 71046; 74420; 80048; 80053; 81001; 83605; 85025; 85610; 85730; 87086; 93005; 93010; 96365; 96375; C1758; C1769; J1100; J1200; J2185; J2250; J2405; J2704; J3010; J3475; J3480; J3490; J7050

== ENCOUNTER 2019-12-21 11:48 | Outpatient (CLI) | payer MEDICARE, OTHER ==
[2019-12-21 15:13] LABS: Hemoglobin 13.4 g/dL (12.0-16.0); Mean Corpuscular HGB CONC 32.6 g/dL (32.0-36.0); Mean Corpuscular Hemoglobin 30.2 pg (27.0-31.0); Mean Corpuscular Volume 92.4 fL (78.0-98.0); Mean Platelet Volume 7.6 fL (7.4-10.4); Platelet Count 246 thou/uL (130-400); RBC Distribution Width 12.6 % (11.5-14.5); Red Blood Cell (RBC) Count 4.44 mill/uL (4.20-5.40); White Blood Cell (WBC) Count 8.2 thou/uL (4.8-10.8)
[2019-12-21 15:19] LABS: PTT 25.3 SEC (22.9-36.1); Prothrombin Time 12.8 SEC (12.0-14.7)
[2019-12-21 15:34] LABS: Anion Gap 12 mmol/L (10-20); BUN (Urea Nitrogen) 11 mg/dL (9.8-20.1); Calc. Creatinine Clearance 0 mL/min (70-130); Carbon Dioxide 28 mmol/L (23-31); Chloride 103 mmol/L (98-107); Estimated GFR-MDRD 79; Glucose 78 mg/dL (80-115); Potassium 3.4 mmol/L (3.5-5.1); Sodium 140 mmol/L (136-145)
== END 2019-12-21 11:49 | disposition home or self-care (01) ==
LOC: LABBT 11:48
PROVIDERS: ATTEND Urology
DX: Z01.818 Encounter for other preprocedural examination (principal); N20.1 Calculus of ureter
CPT/HCPCS: 80048; 85027; 85610; 85730; 93005; 93010

== ENCOUNTER 2019-12-29 07:27 | Day surgery (SDC) | payer MEDICARE, OTHER ==
[2019-12-21 12:40] VITALS: BMI 24.4
[2019-12-29 08:30] LABS: #Basophils 0.1 thou/uL (0.0-0.2); #Eosinphils 0.1 thou/uL (0.0-0.7); #Lymphocytes 1.6 thou/uL (1.20-3.40); #Monocytes 0.6 thou/uL (0.11-0.59); #Neutrophils 5.1 thou/uL (1.40-6.50); %Basophils 1.3 % (0.0-1.0); %Eosinophils 1.8 % (0.0-10.0); %Lymphocytes 21.8 % (21.0-51.0); %Monocytes 7.5 % (0.0-10.0); %Neutrophils 67.5 % (42.0-75.0); Mean Corpuscular HGB CONC 33.6 g/dL (32.0-36.0); Mean Corpuscular Hemoglobin 31.1 pg (27.0-31.0); Mean Corpuscular Volume 92.7 fL (78.0-98.0); Mean Platelet Volume 6.8 fL (7.4-10.4); Platelet Count 356 thou/uL (130-400); RBC Distribution Width 12.5 % (11.5-14.5); Red Blood Cell (RBC) Count 4.19 mill/uL (4.20-5.40); White Blood Cell (WBC) Count 7.5 thou/uL (4.8-10.8)
[2019-12-29] MEDS ORDERED: MEROPENEM 1 GM/50 ML 1 GM in Premix Bag 1 BAG IVPB SCH (08:30)
--- NOTE | 2019-12-29 08:58 | RAD ---
ABDOMEN 1 VIEW: HISTORY: Pain. COMPARISON: IVP 12/15/2019. FINDINGS: A double-J ureteral stent is in place and in good position. Phleboliths in the pelvis. No definite calcifications are seen projecting over the renal shadows. No dilated loops of large or small bowel. Moderate facet arthrosis of L4-5 and L5-S1. IMPRESSION: Satisfactory location of the right double J ureteral stent. POS: TPC
[2019-12-29] MEDS ORDERED: Iothalamate Meglumine 60% 50 ML VIAL FS ONE (09:21)
[2019-12-29] MEDS ORDERED: Fentanyl 100 MCG/2 ML VIAL ONE (09:25)
--- NOTE | 2019-12-29 10:11 | RAD ---
EXAM: Retrograde IVP HISTORY: Right hydronephrosis COMPARISON: None FINDINGS/IMPRESSION: Limited intraoperative fluoroscopic views of the retrograde IVP were submitted f or interpretation. A right ureteral stent is seen in good position. There is a calcification adjacent to the lower aspect of the stent which could potentially represent a distal ureteral calcifi cation. No contrast is seen to evaluate for hydronephrosis.
[2019-12-29] MEDS ORDERED: Oxybutynin 5 MG TAB ONE ×2 (10:13→10:14)
[2019-12-29] MEDS ORDERED: Phenazopyridine HCl 97.5 MG TABLET ONE ×2 (10:13→10:28)
--- NOTE | 2019-12-29 10:40 | OP ---
DATE OF PROCEDURE: 12/29/2019 PREOPERATIVE DIAGNOSIS: A 64-year-old female with right distal ureteral calculi , status post stent. POSTOPERATIVE DIAGNOSIS: A 64-year-old female with right distal ureteral calculi, status post stent. PROCEDURE PERFORMED: Cystoscopy, right 6 x 24 double-J ureteral stent exchange with Dangler, ureteroscopy, laser lithotripsy, and basket extraction of stone. ANESTHESIA: LMA. COMPLICATIONS: None apparent. DISPOSITION: To recovery room in stable condition. SPECIMEN: Stone for chemical analysis. INDICATIONS FOR PROCEDURE: Ms. Santana is a 64-year-old female, who presented to the emergency room due to persistent right lower quadrant abdominal discomfort, found to have a distal ureteral calculi. Her final cultures are negative, however, she did present with initial fever and leukocytosis and bandemia. This has resolved with a negative urine culture and she presents today for ureteroscopy. Risks and complications of the procedure were reviewed with her in detail including, but not limited to, bleeding, pain, infection, injury to adjacent organs, urosepsis, ureteral stricture, injury, possible secondary procedure. All questions were answered to her satisfaction and she desired to proceed. DESCRIPTION OF PROCEDURE: After an informed consent was signed, the patient was taken to the operating room, placed in a dorsal lithotomy position with the genital area prepped and draped in the usual surgical sterile fashion. Broad-spectrum antibiotic was provided. Bilateral DEEPALI hose and SCDs were placed. A 22-Bulgarian cystoscope was utilized for cystoscopy. Upon entering the bladder, no abnormality was seen. The previously placed ureteral stent was removed to the level of the meatus and a 0.35 Sensor wire was placed into the right upper pole. The stone was visible on preoperative KUB and seen on fluoroscopy. She does have pelvic phleboliths, near the ureteral stent. We did not perform a retrograde, to minimize and migrating it proximally. With the wire in situ, as a safety wire, we performed a rigid ureteroscopy. She was passively dilated from the ureteral stent and I was able to easily visualize the stone. We laser lithotripsy the edges of the stone, with a 365 micron laser fiber at dust setting. She was passively dilated with prior history of ureteral obstructing stone, her ureter was capacious. A Nitinol basket was utilized to retrieve the stone nidus intact atraumatically. This was sent for chemical analysis. A 6 x 24 double-J ureteral stent was replaced over the safety wire and left on Dangler. The Dangler was then taped to the patient's pubic symphysis and all instruments were removed. She tolerated the procedure well and transported to the recovery room in stable condition. She will continue Levaquin 750 one p.o. daily until followup appointment, #10 provided; oxybutynin 10 mg one p.o. daily XL; tramadol #40 one p.o. q.6 hours p.r.n.; Azo; Colace p.r.n. prescription provided. She will return to clinic next for stent pull on Dangler. Job ID: [id number] [facility]
[2019-12-29] MEDS ORDERED: PHENYLEPHRINE-NS 100 MCG/ML 10 ML SYRINGE ONE (12:54)
[2019-12-29] MEDS ORDERED: Lidocaine 1% PF 5 ML VIAL ONE (12:54)
[2019-12-29] MEDS ORDERED: Glycopyrrolate 0.2 MG/ML 5 ML SYRINGE ONE (12:54)
[2019-12-29] MEDS ORDERED: Ondansetron PF 4 MG/2 ML Vial ONE (12:54)
[2019-12-29] MEDS ORDERED: PROPOFOL 200 MG/20 ML VIAL ONE (12:54)
== END 2019-12-29 12:05 | disposition home or self-care (01) ==
LOC: SDC 07:27
PROVIDERS: ATTEND Urology
PROC: 0TF68ZZ Fragmentation in Right Ureter, Via Natural or Artificial Opening Endoscopic (ICD-10-PCS; principal; 2019-12-29)
PROC: 0T768DZ Dilation of Right Ureter with Intraluminal Device, Via Natural or Artificial Opening Endoscopic (ICD-10-PCS; 2019-12-29)
DX: N20.1 Calculus of ureter (principal); I10 Essential (primary) hypertension; E78.5 Hyperlipidemia, unspecified; M19.90 Unspecified osteoarthritis, unspecified site; Z79.82 Long term (current) use of aspirin; Z79.899 Other long term (current) drug therapy
CPT/HCPCS: 36415; 74018; 74420; 82365; 85025; 88300; C1769; J2185; J3010